=== PATIENT | male | born 1980 | race Caucasian/White ===

== ENCOUNTER 2019-03-11 18:07 | Emergency (ER) | payer MEDICAID ==
[~2019-03-11] VITALS: Ht 177.8 cm; Wt 70.4 kg
[~2019-03-11 18:07] MED LIST: DICY10CA40 PO; FAMO-96 PO; MAG-19 PO; ONDA4TAB14 PO
[2019-03-11 18:14] VITALS: Ht 177.8 cm; Wt 70.4 kg
[2019-03-11] MEDS ORDERED: FAMOTIDINE 20 MG INJ IV STA (19:32)
[2019-03-11] MEDS ORDERED: BELLADONNA/PHENOBARBITAL TAB PO STA (19:32)
[2019-03-11] MEDS ORDERED: SOD CHLORIDE 0.9% 1,000 ML IV STA (19:32)
[2019-03-11] MEDS ORDERED: AL HYDROX/MG HYDROX/SIMETH 30 ML CUP PO ONE (20:00)
[2019-03-11] MEDS ORDERED: LIDOCAINE 2% VISC 10 ML CUP PO ONE (20:00)
[2019-03-11] MEDS ORDERED: IOHEXOL 300MG/ML 150 ML BTL ONE (21:19)
[2019-03-11] MEDS ORDERED: SOD CHLORIDE 0.9% 100 ML ONE (21:19)
[2019-03-11 21:57] VITALS: BP 128/75; PULSE 85; RESP 20
== END 2019-03-11 22:07 | disposition home or self-care (01) ==
LOC: FTE 18:07
DX: R10.84 Generalized abdominal pain (principal)
CPT/HCPCS: 36415; 74177; 80053; 81003; 83690; 85025; 96374; J7030; Q9967; Z7502; Z7610